=== PATIENT | female | born 1950 | race Caucasian/White ===

== ENCOUNTER 2017-04-12 06:26 | Inpatient (IN) ==
[2017-04-12] MEDS ORDERED: CeFAZolin Pre 2,000 MG/100 ML 2,000 MG/100 ML BAG IVPB ONE (06:38)
[2017-04-12] MEDS ORDERED: Ringers Solution, Lactated 1,000 ML IVC SCH (06:45)
[2017-04-12] MEDS ORDERED: *HR* Remifentanil 1 MG VIAL IVP ONE ×2 (07:07→10:56)
[2017-04-12] MEDS ORDERED: *HR* FentaNYL (PF) 100 MCG/2 ML VIAL ONE (07:07)
[2017-04-12] MEDS ORDERED: *HR* Propofol 200 MG/20 ML VIAL IVP ONE (07:08)
[2017-04-12] MEDS ORDERED: *HR* Midazolam HCl 2 MG/2 ML VIAL ONE ×2 (07:08→12:06)
[2017-04-12] MEDS ORDERED: Lidocaine -MPF 2% 2 ML VIAL ONE (07:09)
[2017-04-12] MEDS ORDERED: *HR* Succinylcholine 200 MG/10 ML VIAL IVP ONE (07:10)
[2017-04-12] MEDS ORDERED: *HR* Phenylephrine 10 MG/ML VIAL ONE (07:11)
[2017-04-12] MEDS ORDERED: Lidocaine -MPF 4% 5 ML AMPUL ONE (07:19)
--- NOTE | 2017-04-12 07:25 | Anesthesia Evaluation PreOp ---
Date of Encounter: 04/12/17 Time of Encounter: 07:22 - Past History Planned Operation: C5 corpectomy Cardiac History: HTN Pulmonary History: Denies Any Significant HX RN PATIENT SERVICES History: Other (cervical radiculopathy) Other Medical History: Renal (CKD stage 3 renal artery stenosis), Thyroid ( hyperthyroid history) Anesthesia History: No Prior Anesthetic Complications, Past Anesthesia (GRIS, Bladder, cystocele/rectocele, Bilat. CTR) Alcohol Use: none Drug use: none Medications and Allergies Citalopram [CeleXA] 20 mg PO HS 11/06/15 [History] Levothyroxine [Synthroid] 100 mcg PO QAM 11/06/15 [History] Lisinopril [Zestril] 40 mg PO HS 11/06/15 [History] Metoprolol [Lopressor] 50 mg PO BID 11/06/15 [History] Omeprazole [PriLOSEC] 20 mg PO DAILY 11/06/15 [History] Aspirin 81 mg PO DAILY 02/16/17 [History] Doxazosin Mesylate [Cardura] 2 mg PO BID 02/16/17 [History] Multivits Min/Iron/FA/Herb#186 [Hair, Skin & Nails Caplet] 1 each PO DAILY 03/16 [History] Ergocalciferol (VITAMIN D2) [Vitamin D2] 50,000 unit PO QWEEK 04/12/17 [History] cloNIDine HCl [Clonidine HCl] 0.3 mg PO QAM 04/12/17 [History] cloNIDine HCl [Clonidine HCl] 0.6 mg PO 1200 04/12/17 [History] cloNIDine HCl [Clonidine HCl] 1.2 mg PO HS 04/12/17 [History] Allergies gabapentin [From Neurontin] Adverse Reaction (Verified 03/16/17 10:13) FELT LOOPY pregabalin [From Lyrica] Adverse Reaction (Verified 03/16/17 10:13) BAD DREAMS - Meds/Allergy Pre-op Review Medications Reviewed: Yes Allergies Reviewed: Yes Beta Blockers on Current Med List: Yes If Beta Blockers taken, Date/Time (Last Dose taken): this morning @ 0545 Anesthesia Results - Labs Laboratory Tests 04/08/17 04/08/17 13:55 13:55 WBC 9.1 Hgb 12.7 Hct 39.1 Plt Count 334 Sodium 137 Potassium 4.6 H BUN 15 Creatinine 1.24 H - Imaging EKG: report reviewed Anesthesia Exam Selected Entries 04/12/17 06:51 Temperature 97.9 F Pulse Rate 57 Respiratory Rate 18 Blood Pressure 127/64 O2 Sat by Pulse Oximetry 98 Height: 63in Weight: 207 lbs NPO (# of Hours): 8 Pain Scale: 3 Pain Scale Used: Numeric (1 - 10) - HEENT Pupil (Motor): EOMI Mallampati: II Teeth: Normal Oral Opening: Greater than 3 - RN PATIENT SERVICES LOC: Oriented RN PATIENT SERVICES Motor: Normal RUE, Normal LUE, Normal RLE, Normal LLE, Normal Face RN PATIENT SERVICES Sensory: Normal: RUE, LUE, RLE, LLE, Face - Cardiac Rhythm: Regular Murmur: None - Pulmonary Breath Sounds: bilateral Clear Respiratory Effort: Symmetrical Anesthesia Assess/Plan ASA Score: 3 Modified [place] Scale for Level of Consciousness: Cooperative, oriented, and tranquil Anesthetic Plan: General Monitoring Plan: Standard Monitors Recovery Plan: PACU (Discussed risks of GA, questions answered and agrees to proceed.)
--- NOTE | 2017-04-12 07:38 | History & Physical Report ---
Date of Encounter: 04/12/17 Time of Encounter: 07:37 24 Hour HP Update - Instructions Instructions: If the History and Physical is less than 30 days old and was completed prior to A.M. admission and or procedure and has NOT been updated on calendar day of procedure please complete this update prior to performing procedure. - Update Patient reports changes in Medical Condition: No Changes in examination, assessment, or condition: No Changes in Medication: No Preop tests/diagnostics Reviewed: Yes Pre-Op MRSA Screen: Negative Surgery Remains Indicated: Yes Consent for Planned Operative Procedure(s) Verified: Yes - Pre-Operative Checklist Preoperative Checklist Indicated: No Prophylactic Antibiotic Ordered: Yes Home Medications Include Beta Ebony: Yes Beta Ebony Taken Today (Day of Surgery): No Beta Ebony Taken Yesterday (Day Prior to Surgery): Yes Is VTE Prophylaxis Indicated?: Yes
[2017-04-12] MEDS ORDERED: Lacri-Lube 3.5 GM TUBE ONE (08:02)
[2017-04-12] MEDS ORDERED: EPHEDrine 50 MG/ML VIAL ONE (08:13)
[2017-04-12] MEDS ORDERED: Ondansetron 4 MG/2 ML VIAL ONE (08:32)
[2017-04-12] MEDS ORDERED: Dexamethasone 4 MG/ML VIAL ONE (08:32)
[2017-04-12] MEDS ORDERED: *HR* HYDROmorphone 2 MG/ML SYRINGE ONE (12:06)
--- NOTE | 2017-04-12 12:54 | Orthopedic Operative Note ---
Date of procedure: 04/12/17 Pre-op diagnosis: Cervical stenosis, cervical kyphosis, cervical myelopathy, anterolisthesis Post-op diagnosis: same Operation/Findings: Corpectomy C5, cervical fusion C3-C7: The patient was brought to the operating room and placed supine on the operating room table. Successful general endotracheal anesthesia intubation was performed. Neurophysiologic monitoring personnel placed leads on the upper and lower extremities as well as the cranium for EMG monitoring purposes. Appropriate baseline potentials were noted by the neurophysiologic monitoring staff. Eldridge catheter was placed prior to positioning. Compression boots and stockings were placed for deep vein thrombosis prophylaxis. Padding was also placed all bony prominences including the ulnar nerve near the medial epicondyles of the elbows were appropriately padded. Mild traction was placed on the bilateral shoulders and taped into place. Preoperative antibiotics were administered. The area from the mandible bilaterally to the upper thoraces was prepped and draped in the usual sterile fashion. An oblique incision was made at the level of the cricoid cartilage which is approximately 4cm in length and extended from the midline of the cervical spine laterally and 1 cm medial and parallel to the sternocleidomastoid muscle on the left. We then performed standard medial approach to the carotid sheath. Sponges were used to tease the fascial medial to the sternocleidomastoid muscle while carefully controlling and palpating the carotid artery. Using careful dissection we were able to get to the level of the anterior vertebral bodies and longus coli muscles. The spinal needle was placed at the appropriate C6-7 and intraoperative radiograph was obtained which was a cervical spine lateral radiograph. The needle and radiograph confirmed we were at the correct operative level. We further exposed this C6-7 level by using Bovie cautery under the medial edge of the longus colli muscles to allow them to be retracted approximately 2 mm laterally on each side. An 11 blade was used to perform anterior discectomy at the appropriate C6-7 level after an initial annulotomy of the anterior longitudinal ligament and annulus was performed. Further disc material was removed with pituitary Rongeurs. Subsequently, Synthes pins were placed at the C6 and C7 vertebral bodies respectively to provide distraction. We then used a Trimline cervical retractor which was placed in both medial and lateral as well as inferior superior direction to allow full visualization of the appropriate C6-7 disc and C6 and C7 vertebral bodies. The Leica microscope was brought to the field and the remainder of the procedure was performed under the guidance of this microscope. Using pituitary rongeurs and small curettes, various micro- instruments, a full discectomy was performed at the appropriate C6-C7 level. The posterior longitudinal ligament was encountered and appeared partially calcified. A portion of this ligament was removed. After complete and thorough discectomy and removal of spondylitic material was performed the endplates of the C6 and C7 vertebral bodies were prepared with a bur until allow bleeding of cancellous bone. A 7mm trial graft was evaluated and appeared to fit quite well within the excised C6-7 disc space. A cortico- cancellous allograft of 7 mm was utilized, carefully tapped into place within the excised disc space with the aid of a bone tamp. It was seated approximately 2 mm from the anterior edge of the cortex of the adjacent vertebral bodies. We then turned our attention to the C3-4 level where a similar series of procedures was performed including discectomy, removal of spondylitic material, end plate preparation, and trial grafting. A 7mm trial fit well within the C3-4 disc space. A 7 mm allograft was then placed at C3-4. We then turned our attention to the C5-6 level where a discectomy and decompression was performed in standard fashion as done at the previous C3-4 and C6-7 levels. This included removal of spondylitic material and taken a portion of the posterior longitudinal ligament. Was subsequently moved to the C4-5 level and again performed a discectomy, decompression, as well as end plate preparation. At this point we had allograft bone at C6-7 and C3-4, and we had performed decompressions at C4-5 and C5-6. This left intervening C5 vertebral body. We removed the anterior portion of the C5 vertebral body using Rongeurs and Kerrison instruments. This bone was saved for later use as autograft. We removed C5 vertebral body and decompressed the area posterior to the C5 vertebral body which included taking a portion of the posterior longitudinal ligament. At this point the area inferior to the C4 endplate and superior to the C6 endplate was completely decompressed and portions of the spinal cord and posterior longitudinal ligament were fully exposed. We then measured this intervening space with calipers. An appropriate size interbody expandable cage ( [employer]) was selected. We packed autograft bone as well as cancellous bone chips in the interbody cage and using fluoroscopic images as an aide, carefully placed the interbody cage within the decompressed region from the inferior portion of C4 to the superior endplate of C6. This was carefully tapped into place and when found to be in appropriate position the tank furnace operator was removed. A four level cervical plate was then placed on the anterior aspect of the C3, C4, C5, C6, and C7 vertebral bodies. The plate was placed in the midline position after drilling eight 13 mm self tapping screws and inserting them. They were locked in place using standard [place] ( [place]) plate maneuvers. At this point a lateral radiograph of the cervical spine was obtained and showed satisfactory position of the graft and plate. The wound was copiously irrigated and bleeders encountered were cauterized using Bovie cautery. Platysma was closed with interrupted 2-0 Vicryl sutures. Running 3-0 Monocryl suture was used for skin closure. Sterile dressing was placed over the neck wound. A cervical collar was placed. The patient was transferred to a hospital bed and extubated. The patient was noted to be fully motor and sensory intact in the recovery room at the end of the procedure. The medications. All sponge instrument and needle counts were correct at the end of the procedure. Anesthesia: RADHA Surgeon: Russell Ren Jr Estimated blood loss (cc): 500 Condition: stable Disposition: ICU (Going to ICU as a precaution against postoperative swelling. Need for controlled extubation.)
[2017-04-12] MEDS ORDERED: *HR* Midazolam HCl 2 MG/2 ML VIAL IVP ONE ×2 (13:14→13:24)
[2017-04-12] MEDS ORDERED: FentaNYL (PF) 1,000 MCG in 0.9 % Sodium Chloride 80 ML IVC SCH (13:15)
[2017-04-12] MEDS ORDERED: *HR* Midazolam HCl 5 MG/5 ML VIAL IVP ONE (13:15)
[2017-04-12] MEDS ORDERED: Naloxone 0.4 MG/ML INJ IVP PRN (13:22)
[2017-04-12] MEDS ORDERED: *HR* OxyCODONE Immed Rel 5 MG TABLET PO PRN (13:22)
[2017-04-12] MEDS ORDERED: *HR* Morphine 2 MG/ML SYRINGE IVP PRN (13:22)
[2017-04-12] MEDS ORDERED: Lacri-Lube 3.5 GM TUBE BOTH EYES PRN (13:39)
[2017-04-12] MEDS ORDERED: Ondansetron 4 MG/2 ML VIAL IVP PRN (13:39)
--- NOTE | 2017-04-12 13:51 | Pulmonology Consult Note ---
<ZiggyRandall W - Last Filed: 04/12/17 16:11> Date of Encounter: 04/12/17 Medications and Allergies Citalopram [CeleXA] 20 mg PO HS 11/06/15 [History] Levothyroxine [Synthroid] 100 mcg PO QAM 11/06/15 [History] Lisinopril [Zestril] 40 mg PO HS 11/06/15 [History] Metoprolol [Lopressor] 50 mg PO BID 11/06/15 [History] Omeprazole [PriLOSEC] 20 mg PO DAILY 11/06/15 [History] Aspirin 81 mg PO DAILY 02/16/17 [History] Doxazosin Mesylate [Cardura] 2 mg PO BID 02/16/17 [History] Multivits Min/Iron/FA/Herb#186 [Hair, Skin & Nails Caplet] 1 each PO DAILY 03/16 [History] Ergocalciferol (VITAMIN D2) [Vitamin D2] 50,000 unit PO QWEEK 04/12/17 [History] cloNIDine HCl [Clonidine HCl] 0.3 mg PO QAM 04/12/17 [History] cloNIDine HCl [Clonidine HCl] 0.6 mg PO 1200 04/12/17 [History] cloNIDine HCl [Clonidine HCl] 1.2 mg PO HS 04/12/17 [History] Allergies gabapentin [From Neurontin] Adverse Reaction (Verified 03/16/17 10:13) FELT LOOPY pregabalin [From Lyrica] Adverse Reaction (Verified 03/16/17 10:13) BAD DREAMS All Systems: A 10-system review of systems was performed and is negative for pertinent findings except as documented above in the HPI. Physical Examination Vital Signs: Vital Signs, Last 4 Hours Temp Pulse Resp BP Pulse Ox 04/12/17 16:00 107 20 99 04/12/17 15:00 74 16 138/80 99 04/12/17 14:00 82 14 132/91 100 04/12/17 13:32 94 04/12/17 13:22 98.2 F 93 16 177/107 100 Ventilator Settings Ventilator Settings: Ventilator Settings, Last 8 Hours Ventilator Mode VC+ Ventilator Mode VC+ Ventilator Mode VC+ Ventilator Tidal Volume 450 Setting Ventilator Tidal Volume 450 Setting Ventilator Respiratory Rate 16 Setting Ventilator Respiratory Rate 16 Setting Actual Respiratory Rate 16 Actual Respiratory Rate 16 Positive End Expiratory 5 Pressure Positive End Expiratory 5 Pressure Peak Inspiratory Airway 23 Pressure Peak Inspiratory Airway 22 Pressure Results - Laboratory Findings ABG ABG pH 7.44 pH Units (7.32-7.45) 04/12/17 15:45 ABG pCO2 37 mmHg (35-45) 04/12/17 15:45 ABG pO2 99 mmHg (85-104) 04/12/17 15:45 ABG O2 Saturation 98 % (95-98) 04/12/17 15:45 Abnormal lab findings: Abnormal lab results ABG Total CO2 26.2 mEq/L (20-26) H 04/12/17 15:45 POC Glucose 184 (58-89) H 04/12/17 13:08 - Clinical Findings Intake & Output: Intake & Output 04/12/17 04/12/17 04/12/17 07:59 15:59 23:59 Intake Total 382 / 382 Output Total 1620 / 1620 Balance -1238 / -1238 Weight 93.894 kg Consult Discharge Plan - Plan Referrals: Eb Raymond MD [Primary Care Provider] - - Attending Attestation I examined this patient and my medical decision-making was reviewed with the MANAGER [employer]AREHOUSING/PA/Advanced Practice Nurse/Resident Physician. I agree with the documented findings, disposition and treatment plan as described except to the extent set forth below. Patient seen and examined at bedside Labs, radiology, chart personally reviewed. All lines examined without evidence of infection. Neuropsych: sedated on vent. Goal Deni = 2-3 Pulm: POD #O s/p Status post anterior cervical corpectomy acute sedated overnight cuff leak test in the morning followed by a spontaneous breathing trial; she had been given Decadron intraoperatively. Acceptable oxygenation on current vent settings checking ABG. No prior history of underlying lung disease Cards: History of difficult to control hypertension we will attempt to restart home oral medications if OG tube can be passed otherwise treating with IV formulation of beta elina and hydralazine FEN-GI: GI prophylaxis given; nothing by mouth for now Renal: Eldridge catheter with acceptable urine output we will check renal function ; she does have a history of renal artery stenosis ID: No active issues we will continue to monitor Heme/Onc: SCDs for now we will transition to subcutaneous heparin once cleared for surgery for chemical DVT prophylaxis Endo: Glucose monitored Integ/MSK: Skin care per ICU protocol to prevent ulcers CODE: Full <Karlie Camacho - Last Filed: 04/12/17 16:26> Date of Encounter: 04/12/17 Time of Encounter: 13:46 Assessment and Plan (1) Status post cervical spinal fusion Current Visit: Yes Status: Acute Cervical stenosis, cervical kyphosis, anterolistesis S/p C5 corpectomy and C3-C7 cervical fusion Patient to ICU as precaution for postoperative swelling. Will require controlled extubation. Currently intubated and sedated with fentanyl and versed Vent settings: volume control RR16, TV450, FiO2 50%, PEEP [address] Ren concerning neck brace and movement Monitor for worsening postoperative swelling Plan for SBT and extubation tomorrow morning (2) Hypertension Current Visit: Yes Status: Acute History of difficult to control hypertension On clonidine, doxazosin, metoprolol and lisinopril at home Currently controlled with blood pressure 120s/80s Will restart home medications after extubation Metoprolol 10mg IV BID Hydralazine PRN for systolic blood pressure >160 Qualifiers: Hypertension type: essential hypertension Qualified Code(s): I10 - Essential (primary) hypertension (3) CKD (chronic kidney disease), stage III Current Visit: Yes Status: Acute Hx of chronic kidney disease, stage III Baseline creatinine 1.16-1.2 BMP currently pending Continue maintenance fluids - lactated ringer 100mls/hr Avoid nephrotoxic medications if possible and follow kidney function (4) Renal artery stenosis Current Visit: Yes Status: Acute Hx of renal artery stenosis Continue to monitor kidney function Restart home blood pressure medications when indicated (5) Hypothyroid Current Visit: Yes Status: Acute Hx of hypothyroidism on levothyroxine Will restart levothyroxine after extubation Qualifiers: Hypothyroidism type: acquired Qualified Code(s): E03.9 - Hypothyroidism, unspecified (6) DVT prophylaxis Current Visit: Yes Status: Acute Leg pumps for DVT prophylaxis. Hold on chemoprophylaxis at this time. Neuro: Intubated and sedated on versed and fentanyl - titrate as needed Pulm: Vent settings - VC RR16, TV 450, FiO2 50%, PEEP. Plan for SBT and hopeful extubation tomorrow Cardiac: Hx of hypertension. Hydralazine prn for systolic BP >160. Will restart home medications after extubation GI/Fluids/Electrolytes: On maintenance fluids with lactated ringer 100mls/hr. Monitor electrolytes. Protonix ppx (intubated and patient on home med) Renal: Eldridge catheter inplace. Continue fluids. Monitor kidney function and urine output ID: No acute concerns. Monitor incisions site and vitals Heme/Onc: Calf pumps for DVT prophylaxis. Endo: Will continue patient's home levothyroxine Lines: - ET - Peripheral IV - Eldridge History of Present Illness Consult date: 04/12/17 Reason for consult: other (Intubated post-op) Chief complaint: S/p corpectom C5, cervical fusion C3-C7 History of present illness: Ms Yeager is a 66yo female with PMH including CKD stage III and hypertension secondary to renal artery stenosis, GERD, spondylisthesis, lumbar stenosis with peripheral neuropathy, and hypothyroidism. Patient underwent a corpectomy C5 and cervical fusion C3-C7 today with Dr. Ren. Due to concern for postoperative swelling and need for a controlled extubation, patient was brought to the ICU post-op. Per jenny, patient was a difficulty airway but there were no complications and patient tolerated the procedure well. Currently patient is intubated and sedated. Afebrile, vital signs appropriate. She has surgical dressing over her anterior neck. No significant swelling is noted. Lungs clear to auscultation with good aeration. Abdomen soft, non- tender, no bowel sounds. Compression stockings in place. Past Med Surg Social Fam HX - Past Medical History Medical history: GERD, hypertension, renal disease, thyroid disease Psychiatric history: anxiety - Past Surgical History Surgical History: hysterectomy, other - Social History Smoking Status: Unknown if ever smoked Smokeless Tobacco Status: No Alcohol use: none Drug use: none ROS unobtainable: due to endotracheal tube All Systems: A 10-system review of systems was performed and is negative for pertinent findings except as documented above in the HPI. Physical Examination Vital Signs: Vital Signs, Last 4 Hours Temp Pulse Resp BP Pulse Ox 04/12/17 13:32 94 04/12/17 13:22 98.2 F 93 16 177/107 100 General appearance: no acute distress, other (Intubated and sedated) Eyes: nonicteric ENT: oropharynx moist Effort: normal Auscultation: bilateral: clear Cardiovascular: regular rate and rhythm Gastrointestinal: absent bowel sounds, soft, non-tender, non-distended Integumentary: normal Extremities: no cyanosis, other (Compression stockings in place) unable to assess due to mental status Ventilator Settings Ventilator Settings: Ventilator Settings Ventilator Mode VC+ Ventilator Mode VC+ Ventilator Tidal Volume 450 Setting Exhaled Tidal Volume 451 Ventilator Respiratory Rate 16 Setting Actual Respiratory Rate 16 Positive End Expiratory 5 Pressure Peak Inspiratory Airway 22 Pressure Results - Laboratory Findings CBC and BMP: 04/12/17 15:58 04/12/17 15:58 Abnormal lab findings: Abnormal lab results POC Glucose 184 (58-89) H 04/12/17 13:08 - Clinical Findings Intake & Output: Intake & Output 04/11/17 04/12/17 04/12/17 23:59 07:59 15:59 Intake Total 100 / 100 Output Total 1620 / 1620 Balance -1520 / -1520 Weight 93.894 kg
[2017-04-12] MEDS: Ringers Solution, Lactated 1,000 ML IVC SCH ×2 (14:13→22:31)
[2017-04-12] MEDS: FentaNYL (PF) 1,000 MCG in 0.9 % Sodium Chloride 80 ML IVC SCH ×3 (14:14→21:23)
[2017-04-12] MEDS: ceFAZolin 2,000 MG in D5% in Water 100 ML IVPB SCH ×2 (15:02→23:35)
[2017-04-12 15:52] LABS: ABG HCO3 25.1 mEQ/L (21-27); ABG Oxygen Saturation 98 % (95-98); ABG PCO2 37 mmHg (35-45); ABG PH 7.44 pH Units (7.32-7.45); ABG PO2 99 mmHg (85-104); ABG TCO2 26.2 mEq/L (20-26)
[2017-04-12 15:53] LABS: Blood Gas FiO2 50 %; Blood Gas Respiration Rate 16; Blood Gas VT 450 cc
[2017-04-12 16:09] LABS: Basophils % 0.1 %; Hematocrit 33.3 % (35.3-44.9); Immature Granulocytes % 0.6 % (0-4); Lymphocytes # 1.5 K/mcL (0.6-4.6); Lymphocytes % 10.5 %; Mean Corpuscular Hemoglobin 30.4 pg (28.0-33.3); Mean Platelet Volume 10.3 fL (9.4-12.4); Monocytes # 0.2 K/mcL (0.0-1.3); Platelet Count 267 K/mcL (140-400); Red Blood Count 3.62 M/mcL (3.82-4.97); Red Cell Distribution Width 14.3 % (11.5-14.5); Segmented Neutrophils % 87.8 %
[2017-04-12 16:10] LABS: Neutrophils # 12.7 K/mcL (1.6-8.9)
[2017-04-12 16:12] LABS: INR 1.1; Prothrombin Time 12.2 Seconds (9.4-12.1)
[2017-04-12 16:15] LABS: Activated Partial Thrombo Time 30.1 Seconds (26.0-36.0)
[2017-04-12 16:19] LABS: Calcium 8.7 mg/dL (8.6-10.8); Magnesium 1.7 mg/dL (1.6-2.6); Phosphorous 2.1 mg/dL (2.3-4.7); Potassium 4.2 mEq/L (3.5-4.5)
[2017-04-12] MEDS ORDERED: *HR* Metoprolol 5 MG/5 ML VIAL IVP PRN (17:24)
[2017-04-12] MEDS: Chlorhexidine Rinse 15 ML MOUTHWASH MM SCH (20:50)
[2017-04-12] MEDS ORDERED: *HR* Metoprolol 5 MG/5 ML VIAL IVP SCH (21:00)
[2017-04-12] MEDS ORDERED: cloNIDine HCl 0.1 MG TABLET PO SCH (21:00)
[2017-04-12] MEDS ORDERED: Lisinopril 20 MG TABLET PO SCH (21:00)
[2017-04-13 03:33] LABS: BUN/Creatinine Ratio 14 (6-26); Blood Urea Nitrogen 14 mg/dL (7-20); Calcium 8.4 mg/dL (8.6-10.8); Carbon Dioxide 23 mEq/L (19-29); Chloride 106 mEq/L (98-109); Glucose 152 mg/dL (70-99); Osmolality,Calculated 289 (280-300); Potassium 3.9 mEq/L (3.5-4.5); Sodium 138 mEq/L (136-145); eGFR For African Americans > 60 (> 60); eGFR For Non-African Americans 54 (> 60)
[2017-04-13 03:37] LABS: Basophils % 0.1 %; Hematocrit 28.8 % (35.3-44.9); Hemoglobin 9.8 g/dL (11.5-15.4); Immature Granulocytes % 0.6 % (0-4); Lymphocytes # 2.4 K/mcL (0.6-4.6); Lymphocytes % 14.3 %; Mean Corpuscular Volume 91.1 fL (83.0-100.0); Mean Platelet Volume 10.4 fL (9.4-12.4); Monocytes # 0.7 K/mcL (0.0-1.3); Monocytes % 4.2 %; Neutrophils # 13.8 K/mcL (1.6-8.9); Platelet Count 274 K/mcL (140-400); Red Blood Count 3.16 M/mcL (3.82-4.97); Red Cell Distribution Width 14.4 % (11.5-14.5); Segmented Neutrophils % 80.8 %
[2017-04-13] MEDS: FentaNYL (PF) 1,000 MCG in 0.9 % Sodium Chloride 80 ML IVC SCH ×2 (04:00→11:40)
[2017-04-13] MEDS ORDERED: Dexmedetomidine HCl 400 MCG/100 ML MLS IVC SCH (07:00)
[2017-04-13] MEDS: Ringers Solution, Lactated 1,000 ML IVC SCH (07:22)
[2017-04-13] MEDS: Chlorhexidine Rinse 15 ML MOUTHWASH MM SCH (07:23)
--- NOTE | 2017-04-13 08:18 | Pulmonology Progress Note ---
<Karlie Camacho - Last Filed: 04/13/17 11:23> Date of Encounter: 04/13/17 Time of Encounter: 08:06 Assessment and Plan (1) Status post cervical spinal fusion Current Visit: Yes Status: Acute Cervical stenosis, cervical kyphosis, anterolistesis POD#1 s/p C5 corpectomy and C3-C7 cervical fusion Patient to ICU as precaution for controlled extubation. Currently intubated and sedated with fentanyl and propofol Vent settings: volume control RR16, TV450, FiO2 50%, PEEP 5 Transition propofol and fentanyl to precedix SBT this morning with pans for extubation Postoperative instructions per Dr. Ren concerning neck brace and movement Monitor for worsening postoperative swelling (2) Hypertension Current Visit: Yes Status: Acute History of difficult to control hypertension On clonidine, doxazosin, metoprolol and lisinopril at home Blood pressure overnight appropriate while on sedation Will restart home medications after extubation Hydralazine PRN for systolic blood pressure >160 Qualifiers: Hypertension type: essential hypertension Qualified Code(s): I10 - Essential (primary) hypertension (3) CKD (chronic kidney disease), stage III Current Visit: Yes Status: Acute Hx of chronic kidney disease, stage III Baseline creatinine 1.16-1.2 Creatinine today 1.02 from 1.20 yesterday Continue maintenance fluids - lactated ringer 100mls/hr. Can decrease fluids as patient beings to tolerate PO intake Avoid nephrotoxic medications if possible and follow kidney function (4) Renal artery stenosis Current Visit: Yes Status: Acute Hx of renal artery stenosis Continue to monitor kidney function Restart home blood pressure medications after extubation (5) Hypothyroid Current Visit: Yes Status: Acute Hx of hypothyroidism on levothyroxine Will restart levothyroxine after extubation Qualifiers: Hypothyroidism type: acquired Qualified Code(s): E03.9 - Hypothyroidism, unspecified (6) DVT prophylaxis Current Visit: Yes Status: Acute Mechanical prophylaxis Neuro: Wean off propofol and fentanyl to precedex for extubation Pulm: SBT this morning for hopeful extubation Cardiac: Blood pressure and heart rate appropriate overnight. Will restart home medications after extubation GI/Fluids/Electrolytes: - Maintenance fluids of LR 100mls/hr. After extubation will advance diet to clears and when taking adequate PO, will decrease IV fluids. - Per surgery, clear liquid diet until patient is passing gas - Electrolytes within normal limits this morning - Protonix ppx. Will restart home omeprazole after extubation Renal: Mcclain cather in place. Appropriate urine output overnight. After extubation, will remove mcclain. ID: No acute concerns. Monitor incision site and vitals Heme/Onc: Calf pumps for DVT prophylaxis. Hold chemical prophylaxis. Endo: Will restart home synthroid after extubation Lines: ET, peripheral IV, mcclain Devices: Neck brace in place Status: Full Code Disposition: ICU while intubated. Plan for transfer to floor once patient is successfully extubated Subjective Principal diagnosis: S/p C5 corpectomy and C3-C7 cervical fusion Interval history: Overnight, patient became agitated with decreased sedation however no acute events. Patient afebrile, vital signs within normal limits. This morning, patient is intubated and sedated with propofol and fentanyl. Vent settings on VC+ with a TV 450, RR16, FiO2 of 40% and PEEP of 5. Patient seen and examined. Neck is in c-collar brace but there are no signs of worsening swelling. Lungs clear to auscultation bilaterally. No bowel sounds but abdomen soft, nontender. No pedal edema noted. Objective PUL Vital signs: Last Vital Signs Temp 98.4 F 04/13/17 04:00 Pulse 66 04/13/17 07:00 Resp 16 04/13/17 07:44 BP 120/70 04/13/17 07:44 Pulse Ox 95 04/13/17 07:44 General appearance: no acute distress, other (Intubated and sedated) Eyes: nonicteric ENT: oropharynx moist Neck: other (Neck brace in place) Effort: normal Auscultation: bilateral: clear Cardiovascular: regular rate and rhythm Gastrointestinal: absent bowel sounds, soft, non-tender, non-distended Integumentary: normal Extremities: no cyanosis, no edema unable to assess due to mental status Ventilator Settings Ventilator Settings: Ventilator Settings, Last 8 Hours Ventilator Mode VC+ Ventilator Mode VC+ Ventilator Mode VC+ Ventilator Mode VC+ Ventilator Mode VC+ Ventilator Mode VC+ Ventilator Tidal Volume 450 Setting Ventilator Tidal Volume 450 Setting Ventilator Tidal Volume 450 Setting Ventilator Tidal Volume 450 Setting Ventilator Tidal Volume 450 Setting Ventilator Tidal Volume 450 Setting Ventilator Respiratory Rate 16 Setting Ventilator Respiratory Rate 16 Setting Ventilator Respiratory Rate 16 Setting Ventilator Respiratory Rate 16 Setting Ventilator Respiratory Rate 16 Setting Ventilator Respiratory Rate 16 Setting Actual Respiratory Rate 16 Actual Respiratory Rate 16 Actual Respiratory Rate 16 Actual Respiratory Rate 16 Actual Respiratory Rate 16 Actual Respiratory Rate 19 Positive End Expiratory 5 Pressure Positive End Expiratory 5 Pressure Positive End Expiratory 5 Pressure Positive End Expiratory 5 Pressure Positive End Expiratory 5 Pressure Positive End Expiratory 5 Pressure Peak Inspiratory Airway 24 Pressure Peak Inspiratory Airway 24 Pressure Peak Inspiratory Airway 24 Pressure Peak Inspiratory Airway 25 Pressure Peak Inspiratory Airway 25 Pressure Peak Inspiratory Airway 23 Pressure Results - Laboratory Findings CBC and BMP: 04/13/17 03:14 04/13/17 03:14 ABG ABG pH 7.44 pH Units (7.32-7.45) 04/12/17 15:45 ABG pCO2 37 mmHg (35-45) 04/12/17 15:45 ABG pO2 99 mmHg (85-104) 04/12/17 15:45 ABG O2 Saturation 98 % (95-98) 04/12/17 15:45 PT/INR, D-dimer PT 12.2 Seconds (9.4-12.1) H 04/12/17 15:58 Abnormal lab findings: Abnormal lab results WBC 17.0 K/mcL (4.3-11.1) H 04/13/17 03:14 RBC 3.16 M/mcL (3.82-4.97) L 04/13/17 03:14 Hgb 9.8 g/dL (11.5-15.4) L 04/13/17 03:14 Hct 28.8 % (35.3-44.9) L 04/13/17 03:14 Neutrophils # 13.8 K/mcL (1.6-8.9) H 04/13/17 03:14 PT 12.2 Seconds (9.4-12.1) H 04/12/17 15:58 ABG Total CO2 26.2 mEq/L (20-26) H 04/12/17 15:45 Est GFR (Non-Af Amer) 54 (> 60) L 04/13/17 03:14 Glucose 152 mg/dL (70-99) H 04/13/17 03:14 POC Glucose 162 (58-89) H 04/12/17 23:32 Calcium 8.4 mg/dL (8.6-10.8) L 04/13/17 03:14 Phosphorus 2.1 mg/dL (2.3-4.7) L 04/12/17 15:58 - Diagnostic Findings Chest x-ray: report reviewed, image reviewed - Clinical Findings Intake & Output: Intake & Output 04/12/17 04/13/17 04/13/17 23:59 07:59 15:59 Intake Total 1030 / 1030 1344 / 1344 Output Total 650 / 650 500 / 500 Balance 380 / 380 844 / 844 Weight 99.7 kg - VTE Documentation of Mechanical Device: Intermittent pneumatic compression device Consult Discharge Plan - Plan Referrals: Eb Raymond MD [Primary Care Provider] - <Randall Trinh W - Last Filed: 04/13/17 11:35> Date of Encounter: 04/13/17 Objective PUL Vital signs: Last Vital Signs Temp 98.2 F 04/13/17 08:14 Pulse 80 04/13/17 09:00 Resp 20 04/13/17 09:00 BP 151/80 04/13/17 09:00 Pulse Ox 95 04/13/17 09:00 Ventilator Settings Ventilator Settings: Ventilator Settings, Last 8 Hours Ventilator Mode CPAP Ventilator Mode VC+ Ventilator Mode VC+ Ventilator Mode VC+ Ventilator Mode VC+ Ventilator Mode VC+ Ventilator Mode VC+ Ventilator Mode VC+ Ventilator Tidal Volume 450 Setting Ventilator Tidal Volume 450 Setting Ventilator Tidal Volume 450 Setting Ventilator Tidal Volume 450 Setting Ventilator Tidal Volume 450 Setting Ventilator Tidal Volume 450 Setting Ventilator Tidal Volume 450 Setting Ventilator Respiratory Rate 16 Setting Ventilator Respiratory Rate 16 Setting Ventilator Respiratory Rate 16 Setting Ventilator Respiratory Rate 16 Setting Ventilator Respiratory Rate 16 Setting Ventilator Respiratory Rate 16 Setting Ventilator Respiratory Rate 16 Setting Actual Respiratory Rate 16 Actual Respiratory Rate 16 Actual Respiratory Rate 16 Actual Respiratory Rate 16 Actual Respiratory Rate 16 Actual Respiratory Rate 16 Actual Respiratory Rate 19 Positive End Expiratory 0 Pressure Positive End Expiratory 5 Pressure Positive End Expiratory 5 Pressure Positive End Expiratory 5 Pressure Positive End Expiratory 5 Pressure Positive End Expiratory 5 Pressure Positive End Expiratory 5 Pressure Positive End Expiratory 5 Pressure Peak Inspiratory Airway 24 Pressure Peak Inspiratory Airway 24 Pressure Peak Inspiratory Airway 24 Pressure Peak Inspiratory Airway 24 Pressure Peak Inspiratory Airway 25 Pressure Peak Inspiratory Airway 25 Pressure Peak Inspiratory Airway 23 Pressure Results - Laboratory Findings CBC and BMP: 04/13/17 03:14 04/13/17 03:14 ABG ABG pH 7.44 pH Units (7.32-7.45) 04/12/17 15:45 ABG pCO2 37 mmHg (35-45) 04/12/17 15:45 ABG pO2 99 mmHg (85-104) 04/12/17 15:45 ABG O2 Saturation 98 % (95-98) 04/12/17 15:45 PT/INR, D-dimer PT 12.2 Seconds (9.4-12.1) H 04/12/17 15:58 Abnormal lab findings: Abnormal lab results WBC 17.0 K/mcL (4.3-11.1) H 04/13/17 03:14 RBC 3.16 M/mcL (3.82-4.97) L 04/13/17 03:14 Hgb 9.8 g/dL (11.5-15.4) L 04/13/17 03:14 Hct 28.8 % (35.3-44.9) L 04/13/17 03:14 Neutrophils # 13.8 K/mcL (1.6-8.9) H 04/13/17 03:14 PT 12.2 Seconds (9.4-12.1) H 04/12/17 15:58 ABG Total CO2 26.2 mEq/L (20-26) H 04/12/17 15:45 Est GFR (Non-Af Amer) 54 (> 60) L 04/13/17 03:14 Glucose 152 mg/dL (70-99) H 04/13/17 03:14 POC Glucose 162 (58-89) H 04/12/17 23:32 Calcium 8.4 mg/dL (8.6-10.8) L 04/13/17 03:14 Phosphorus 2.1 mg/dL (2.3-4.7) L 04/12/17 15:58 - Clinical Findings Intake & Output: Intake & Output 04/12/17 04/13/17 04/13/17 23:59 07:59 15:59 Intake Total 1030 / 1030 1344 / 1344 36 / 36 Output Total 650 / 650 500 / 500 200 / 200 Balance 380 / 380 844 / 844 -164 / -164 Weight 99.7 kg - Attending Attestation I examined this patient and my medical decision-making was reviewed with the [employer]/PA/Advanced Practice Nurse/Resident Physician. I agree with the documented findings, disposition and treatment plan as described except to the extent set forth below. Patient seen and examined at bedside Labs, radiology, chart personally reviewed. All lines examined without evidence of infection. Neuropsych: awake and alert. C collar in place per Ortho Spine Pulm: POD #1 s/p Status post anterior cervical corpectomy successfully liberated from vent. doing well. does have low O2 requirement likely s/t post ATx Cards: History of difficult to control hypertension restart home meds once taking PO mes FEN-GI: ADAT after Bedside speech/swallow eval. Renal: Mcclain catheter with acceptable urine output we will check renal function ; she does have a history of renal artery stenosis ID: No active issues we will continue to monitor. leukocytosis likely s/t to stress and steroid. Heme/Onc: SCDs for now we will transition to subcutaneous heparin once cleared for surgery for chemical DVT prophylaxis (48 hours) Endo: Glucose monitored Integ/MSK: Skin care per ICU protocol to prevent ulcers CODE: Full
[2017-04-13] MEDS: MethylPREDNISolone 40 MG/ML VIAL IVP ONE ×2 (08:33→09:48)
[2017-04-13] MEDS ORDERED: cloNIDine HCl 0.1 MG TABLET PO SCH ×3 (09:00→21:00)
[2017-04-13] MEDS ORDERED: Aspirin 81 MG TAB.CHEW PO SCH (09:00)
[2017-04-13] MEDS ORDERED: Multivit/Ca/Min/Fe/FA 1 TAB TABLET PO SCH (09:00)
[2017-04-13] MEDS ORDERED: Pantoprazole 40 MG VIAL IVP SCH (09:00)
[2017-04-13] MEDS ORDERED: Racepinephrine Neb 0.5 ML VIAL IH ONE ×2 (09:45→09:47)
[2017-04-13] MEDS ORDERED: MethylPREDNISolone 40 MG/ML VIAL IVP ONE (09:45)
[2017-04-13] MEDS ORDERED: MethylPREDNISolone 40 MG/ML VIAL ONE (09:46)
--- NOTE | 2017-04-13 13:21 | Spine Progress Note ---
Date of Encounter: 04/13/17 Time of Encounter: 13:20 Subjective Principal diagnosis: S/p C5 corpectomy and C3-C7 cervical fusion Interval history: The patient is without complaints. She was extubated earlier this morning. No dysphagia symptoms. Afebrile vital signs are stable. Dressing is clean dry and intact. Neurovascularly intact with regard to bilateral upper and lower extremities. Assessment :stable. Plan mobilize ,continue analgesics, transfer to regular nursing staff floor per ICU staff. Objective Vital signs: Vital Signs Temp Pulse Resp BP Pulse Ox 04/13/17 13:00 94 18 126/63 96 04/13/17 12:33 98.2 F 04/13/17 12:00 72 20 156/70 95 04/13/17 11:00 102 20 148/84 96 04/13/17 10:47 16 94 04/13/17 10:00 107 13 132/107 95 04/13/17 09:00 80 20 151/80 95 04/13/17 08:58 13 151/80 94 04/13/17 08:14 98.2 F 04/13/17 08:00 62 16 133/72 95 04/13/17 07:44 16 120/70 95 04/13/17 07:00 66 16 115/70 95 04/13/17 06:00 64 16 116/67 93 04/13/17 05:51 16 110/64 93 04/13/17 05:00 61 16 111/62 93 04/13/17 04:00 98.4 F 64 16 105/60 95 04/13/17 03:42 16 108/68 95 04/13/17 03:00 88 16 146/86 96 04/13/17 02:15 19 146/87 95 04/13/17 02:00 75 16 146/87 95 04/13/17 01:00 73 16 131/80 95 04/13/17 00:00 99 F 74 16 128/81 96 04/12/17 23:58 66 04/12/17 23:46 16 128/81 96 04/12/17 23:00 66 16 127/76 95 04/12/17 22:00 77 16 110/71 95 04/12/17 21:40 16 117/79 95 04/12/17 21:00 83 16 127/83 96 04/12/17 20:29 16 112/73 96 04/12/17 20:00 98.6 F 100 17 110/74 94 04/12/17 19:00 74 16 114/74 96 04/12/17 18:00 78 16 119/73 96 04/12/17 17:57 16 117/78 96 04/12/17 17:00 81 16 119/81 96 04/12/17 16:00 107 20 99 04/12/17 15:45 16 127/80 98 04/12/17 15:00 74 16 138/80 99 04/12/17 14:00 82 14 132/91 100 04/12/17 13:32 94 04/12/17 13:22 98.2 F 93 16 177/107 100 Intake and Output 04/12/17 04/13/17 04/13/17 23:59 07:59 15:59 Intake Total 1030 / 1030 1344 / 1344 1009 / 1009 Output Total 650 / 650 500 / 500 375 / 375 Balance 380 / 380 844 / 844 634 / 634 Intake: IV Fluids 1030 / 1030 1344 / 1344 169 / 169 PRECEDEX 400 mcg In 100 33 / 33 ml @ 0.2 MCG/KG/HR 4.985 mls/hr IVC .Q20H4M [facility] Rx #:[id number] FentaNYL (PF) 1,000 MCG 100 / 100 80 / 80 100 / 100 In 0.9 % Sodium Chloride 80 ML @ 50 MCG/HR 5 mls/ hr IVC CONT [facility] Rx#: [id number] Versed 50 MG In 0.9 % 84 / 84 Sodium Chloride 90 ML @ 2 MG/HR 4 mls/hr IVC CONT [facility] Rx#:[id number] Diprivan 1,000 mg In 100 0 / 0 264 / 264 36 / 36 ml @ 5 MCG/KG/MIN 2.817 mls/hr IVC .Q24H [facility] Rx#: [id number] Lactated Ringers 1,000 ML 846 / 846 1000 / 1000 @ 100 mls/hr IVC .Q10H [facility] Rx#:[id number] Oral 840 / 840 Output: Catheter 650 / 650 500 / 500 375 / 375 Other: Meal Lunch Percent of Meal Consumed 100% Weight 99.7 kg 99.7 kg Blood Glucose* 162 Patient Weight 04/13/17 23:59 Weight 99.7 kg - Labs CBC & BMP: 04/13/17 03:14 04/13/17 03:14 Labs: Abnormal lab results WBC 17.0 K/mcL (4.3-11.1) H 04/13/17 03:14 RBC 3.16 M/mcL (3.82-4.97) L 04/13/17 03:14 Hgb 9.8 g/dL (11.5-15.4) L 04/13/17 03:14 Hct 28.8 % (35.3-44.9) L 04/13/17 03:14 Neutrophils # 13.8 K/mcL (1.6-8.9) H 04/13/17 03:14 PT 12.2 Seconds (9.4-12.1) H 04/12/17 15:58 ABG Total CO2 26.2 mEq/L (20-26) H 04/12/17 15:45 Est GFR (Non-Af Amer) 54 (> 60) L 04/13/17 03:14 Glucose 152 mg/dL (70-99) H 04/13/17 03:14 POC Glucose 162 (58-89) H 04/12/17 23:32 Calcium 8.4 mg/dL (8.6-10.8) L 04/13/17 03:14 Phosphorus 2.1 mg/dL (2.3-4.7) L 04/12/17 15:58 Consult Discharge Plan - Plan Referrals: Eb Raymond MD [Primary Care Provider] -
[2017-04-13] MEDS ORDERED: *HR* Morphine 2 MG/ML SYRINGE IVP PRN (14:42)
[2017-04-13] MEDS ORDERED: Ondansetron 4 MG/2 ML VIAL IVP PRN (14:42)
[2017-04-13] MEDS ORDERED: Ringers Solution, Lactated 1,000 ML IVC SCH (14:42)
[2017-04-13] MEDS ORDERED: Naloxone 0.4 MG/ML INJ IVP PRN (14:42)
[2017-04-13] MEDS ORDERED: Acetaminophen 325 MG TABLET PO PRN (17:00)
[2017-04-13] MEDS: *HR* OxyCODONE Immed Rel 5 MG TABLET PO PRN (21:00)
[2017-04-13] MEDS ORDERED: Lisinopril 20 MG TABLET PO SCH (21:00)
[2017-04-14] MEDS ORDERED: Aspirin 81 MG TAB.CHEW PO SCH (09:00)
[2017-04-14] MEDS ORDERED: cloNIDine HCl 0.1 MG TABLET PO SCH ×2 (09:00→12:00)
[2017-04-14] MEDS ORDERED: Multivit/Ca/Min/Fe/FA 1 TAB TABLET PO SCH (09:00)
[2017-04-14] MEDS: *HR* OxyCODONE Immed Rel 5 MG TABLET PO PRN (09:22)
[2017-04-14 10:46] VITALS: BP 127/68
--- NOTE | 2017-04-14 11:55 | Discharge Summary ---
Date of Encounter: 04/14/17 Time of Encounter: 11:53 - Discharge Diagnosis (1) Cervical kyphosis Priority: Secondary Status: Chronic Qualifiers: Qualified Code(s): M40.202 - Unspecified kyphosis, cervical region (2) Cervical stenosis of spinal canal Priority: Primary Status: Chronic (3) Cervical radiculopathy Priority: Secondary Status: Chronic - Discharge Medications Prescriptions: OxyCODONE Immed Rel [Roxicodone 5 MG] 5 mg PO Q6HR PRN #60 tablet PRN Reason: Severe Pain Home Medications: Citalopram [CeleXA] 20 mg PO HS 11/06/15 [History] Levothyroxine [Synthroid] 100 mcg PO QAM 11/06/15 [History] Lisinopril [Zestril] 40 mg PO HS 11/06/15 [History] Metoprolol [Lopressor] 50 mg PO BID 11/06/15 [History] Omeprazole [PriLOSEC] 20 mg PO DAILY 11/06/15 [History] Aspirin 81 mg PO DAILY 02/16/17 [History] Doxazosin Mesylate [Cardura] 2 mg PO BID 02/16/17 [History] Multivits Min/Iron/FA/Herb#186 [Hair, Skin and Nails Caplet] 1 each PO DAILY [History] Ergocalciferol (VITAMIN D2) [Vitamin D2] 50,000 unit PO QWEEK 04/12/17 [History] cloNIDine HCl [Clonidine HCl] 0.3 mg PO QAM 04/12/17 [History] cloNIDine HCl [Clonidine HCl] 0.6 mg PO 1200 04/12/17 [History] cloNIDine HCl [Clonidine HCl] 1.2 mg PO HS 04/12/17 [History] OxyCODONE Immed Rel [Roxicodone 5 MG] 5 mg PO Q6HR PRN #60 tablet 04/14/17 [Rx] Allergies/Adverse Reactions: Allergies gabapentin [From Neurontin] Adverse Reaction (Verified 03/16/17 10:13) FELT LOOPY pregabalin [From Lyrica] Adverse Reaction (Verified 03/16/17 10:13) BAD DREAMS - Impressions ITS Impressions Cervical Spine X-Ray 04/12/17 08:25 IMPRESSION: Intraprocedural fluoroscopic spot image as above. See separate procedure report for more information. D/ / 04/12/2017 13:30:17 Christopher Ruggiero MD / landy Interpreting Provider: Christopher Ruggiero MD Fluoroscopy 04/12/17 08:25 IMPRESSION: Intraprocedural fluoroscopic spot image as above. See separate procedure report for more information. D/ / 04/12/2017 13:30:17 Christopher Ruggiero MD / landy Interpreting Provider: Christopher Ruggiero MD Chest X-Ray 04/13/17 09:30 IMPRESSION: 1. The endotracheal tube tip is 4-5 cm above the carmelita. 2. Bibasilar airspace disease likely represents atelectasis. D/ / Patrick Duke MD / Patrick Duke MD Interpreting Provider: Patrick Duke MD Cervical Spine X-Ray 04/13/17 15:29 IMPRESSION: Postsurgical changes at C2-7 with no acute abnormality. D/ / Cristobal Lizarraga MD / Cristobal Lizarraga MD Interpreting Provider: Cristobal Lizarraga MD Date of admission: 04/12/17 13:04 Primary care physician: Eb Raymond MD Consults: 04/12/17 13:22 Consult to Spine Navigator [CONS] [CONS] Routine 04/13/17 15:30 Consult to Occupational Therapy [CONS] Routine Comment: Evaluate, develop and implement POC Reason for Consult: post op Consult to Physical Therapy [CONS] Routine Comment: Evaluate, develop and implement POC Reason for Consult: post op - Patient Status Disposition: Home, Self-Care Condition: Good Functional capacity at discharge: independent ambulation Overall status at discharge: patient is progressing back to baseline - Discharge Instructions Follow Up With: Eb Raymond MD [Primary Care Provider] - - Diet and Activity Activity: as per physical therapy Diet: advance to your usual diet - Hospital Course Hospital course: Ms. Yeager is a 66 year old female The patient had an uneventful postoperative course. she was intubated overnight in the intensive postoperative swelling. She was then transferred to a regular nursing floor pod #1. . Progressed from intravenous analgesic needs to oral analgesic needs only. Remained neurovascularly intact and mobilized satisfactorily. All intraoperative and/or postoperative radiographic studies were satisfactory. Patient is discharged with plan for rehabilitation and follow-up in 2 weeks post discharge on analgesic medication and patient's home medications. - Time Spent with Patient Total time spent providing and/or coordinating discharge services: - VTE Documentation of Mechanical Device: Intermittent pneumatic compression device
== END 2017-04-14 13:45 | disposition home or self-care (01) | DRG 473 ==
LOC: SAMDAY 06:26 → ICNU 13:04 → 3NENU 04-13 14:34
PROVIDERS: ADMIT Orthopaedic Surgery Orthopaedic Surgery of the Spine; ATTEND Orthopaedic Surgery Orthopaedic Surgery of the Spine
PROC: SPICORP (2017-04-12 07:45)